=== PATIENT | female | born 1995 | race American Indian/Alaskan Native ===

== ENCOUNTER 2016-09-07 11:40 | Emergency (ER) | payer MEDICAID, OTHER ==
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
[2016-09-07 14:23] LABS: Bilirubin,Urine NEG (Negative); Blood,Urine NEG (Negative); Ketones,Urine NEG (Negative); Leukocyte Esterase,Urine NEG (Negative); Mucus,Urine 1+ /HPF; Nitrite,Urine NEG (Negative); Protein,Urine <15 mg/dL mg/dL (Negative); Urobilinogen,Urine < 2.0 mg/dL (<2.0)
--- NOTE | 2016-09-07 16:01 | XRay Report ---
AP AND LATERAL LUMBOSACRAL SPINE: History: Back pain. The vertebral bodies are well mineralized and normal in alignment and vertebral height with well preserved interspace distances. The visualized portions of the posterior elements are normal. IMPRESSION: Normal study.
[2016-09-07 16:40] VITALS: BP 122/80
== END 2016-09-07 16:38 | disposition home or self-care (01) ==
LOC: ED 11:40
DX: M54.16 Radiculopathy, lumbar region (principal)
CPT/HCPCS: 72100; 81001; 81025; 99283

== ENCOUNTER 2018-10-07 20:16 | Emergency (ER) | payer OTHER ==
--- NOTE | 2018-10-07 22:45 | Emergency Department Report ---
ED Female HPI - General Chief complaint: Urogenital-Female Stated complaint: BLOOD PREG TEST Time Seen by Provider: 10/07/18 22:20 Source: patient Mode of arrival: Ambulatory Limitations: No Limitations - History of Present Illness Initial comments: Patient is a nulliparous 23-year-old of female with no past medical history who presents to the ED with complaint of persistent bilateral nipple pain, intermittent nausea and vomiting for the last 1 week. Patient says that she has had 7 pregnancies tests at home these have all been negative. Patient states that her symptoms are persistent and wanted a blood test to rule out a positive . Patient denies abdominal pain, dizziness, fever, chills, dysuria, urinary frequency and urgency, vaginal discharge, vaginal bleeding, diarrhea, headache or change in vision or palpitations. Patient states that she used to be on control medications for 4 years but stopped taking these medications 5 months ago. Patient states that her last major cycle was 2 months ago. MD Complaint: other (Bilateral nipple pain, intermittent nausea) -: Gradual, week(s) (4) Location: other (Generalized) Radiation: non-radiating Severity: mild Severity scale (0 -10): 1 Quality: dull Consistency: intermittent Improves with: none Worsens with: none Are you Now?: No Last Menstrual Period: 08/07/18 EDC: 05/14/19 Associated Symptoms: nausea/vomiting, loss of appetite. denies: vaginal discharge, vaginal bleeding, abdominal pain, fever/chills, dysuria, hematuria, rash, shortness of breath, syncope, weakness - Related Data Sexually active: Yes : 0 Para: 0 A: 0 Previous Rx's Medication Instructions Recorded Last Taken Type DOXYCYCLINE Hyclate [Vibramycin 100 mg PO BID #14 capsule 06/22/13 Unknown Rx CAP] Ibuprofen [Motrin] 800 mg PO Q8HR PRN #15 tablet 09/07/16 Unknown Rx Metaxalone [Skelaxin] 800 mg PO TID #15 tablet 09/07/16 Unknown Rx Allergies Allergy/AdvReac Type Severity Reaction Status Date / Time Penicillins Allergy Rash Verified 06/22/13 17:01 ED Review of Systems ROS: Stated complaint: BLOOD PREG TEST Other details as noted in HPI Comment: All other systems reviewed and negative Constitutional: no symptoms reported. denies: see HPI, chills, diaphoresis, fever, malaise, weakness Eyes: as per HPI. denies: eye pain, eye discharge, vision change ENT: as per HPI. denies: ear pain, dental pain, hearing loss Respiratory: no symptoms reported, see HPI. denies: cough, orthopnea, shortness of breath, SOB with exertion Cardiovascular: as per HPI. denies: chest pain, palpitations, dyspnea on exertion, paroxysmal nocturnal dyspnea Endocrine: no symptoms reported, see HPI. denies: excessive sweating, intolerance to cold, intolerance to heat, increased thirst, increased urine, unexplained weight gain Gastrointestinal: as per HPI, nausea, vomiting. denies: abdominal pain, diarrhea, constipation, hematemesis, hematochezia Genitourinary: as per HPI. denies: urgency, dysuria, frequency, hematuria, discharge, abnormal menses, dyspareunia Musculoskeletal: as per HPI. denies: back pain, joint swelling, arthralgia Skin: as per HPI. denies: rash, lesions, change in hair/nails, pruritus Neurological: as per HPI. denies: headache, weakness, paresthesias, confusion Psychiatric: as per HPI Hematological/Lymphatic: as per HPI ED Past Medical Hx - Past Medical History Previous Medical History?: No - Surgical History Past Surgical History?: No - Social History Smoking Status: Never Smoker Substance Use Type: None - Medications Home Medications: Home Medications Medication Instructions Recorded Confirmed Last Taken Type DOXYCYCLINE Hyclate [Vibramycin 100 mg PO BID #14 capsule 06/22/13 Unknown Rx CAP] Ibuprofen [Motrin] 800 mg PO Q8HR PRN #15 tablet 09/07/16 Unknown Rx Metaxalone [Skelaxin] 800 mg PO TID #15 tablet 09/07/16 Unknown Rx ED Physical Exam - General Limitations: No Limitations General appearance: alert, in no apparent distress - Head Head exam: Present: atraumatic, normocephalic, normal inspection - Eye Eye exam: Present: normal appearance, PERRL, EOMI. Absent: scleral icterus, conjunctival injection, nystagmus Pupils: Present: normal accommodation - ENT ENT exam: Present: normal exam, normal orophraynx, mucous membranes moist, TM's normal bilaterally, normal external ear exam - Neck Neck exam: Present: normal inspection. Absent: tenderness, meningismus, full ROM, lymphadenopathy - Respiratory Respiratory exam: Present: normal lung sounds bilaterally. Absent: rales, rhonchi, chest wall tenderness, decreased breath sounds, prolonged expiratory - Cardiovascular Cardiovascular Exam: Present: regular rate, normal rhythm, normal heart sounds - GI/Abdominal GI/Abdominal exam: Present: soft, normal bowel sounds. Absent: tenderness, guarding, rebound, hyperactive bowel sounds, hypoactive bowel sounds - Rectal Rectal exam: Present: deferred - Extremities Exam Extremities exam: Present: normal inspection, full ROM, normal capillary refill - Back Exam Back exam: Present: normal inspection, full ROM. Absent: muscle spasm, paraspinal tenderness, vertebral tenderness - Neurological Exam Neurological exam: Present: alert, oriented X3, CN II-XII intact - Psychiatric Psychiatric exam: Present: normal affect - Skin Skin exam: Present: warm, dry, intact, normal color ED Course Vital Signs 10/07/18 20:36 Temperature 98.6 F Pulse Rate 71 Respiratory 18 Rate Blood Pressure 138/76 O2 Sat by Pulse 99 Oximetry ED Medical Decision Making - Medical Decision Making Lab tests results are unremarkable, with the hCG Quant less than 2.0. Patient discharged home and advised follow-up with [facility] physician in 7-10 days for reevaluation. - Differential Diagnosis , Fibrocystic breast disease Critical care attestation.: If time is entered above; I have spent that time in minutes in the direct care of this critically ill patient, excluding procedure time. ED Disposition Clinical Impression: Nausea and vomiting in adult -related symptom Qualifiers: Trimester: unspecified trimester Qualified Code(s): O26.90 - related conditions, unspecified, unspecified trimester Disposition: - TO HOME OR SELFCARE Is pt being admited?: No Does the pt Need Aspirin: No Condition: Stable Instructions: Breast Fullness Versus Breast Engorgement (ED), Acute Nausea and Vomiting (ED) Additional Instructions: FOLLOW UP WITH THE [facility] IN 7-10 DAYS FOR REEVALUATION Referrals: KAVIN FLORES MD [Primary Care Provider] - 3-5 Days Time of Disposition: 22:44 Print Language: STATELESS
[2018-10-07 23:55] VITALS: BP 128/67
== END 2018-10-07 23:55 | disposition home or self-care (01) ==
LOC: ED 20:16
DX: O21.8 Other vomiting complicating pregnancy (principal); O26.90 Pregnancy related conditions, unspecified, unspecified trimester; Z3A.00 Weeks of gestation of pregnancy not specified
CPT/HCPCS: 36415; 84702; 99283

== ENCOUNTER 2020-06-09 07:59 | Emergency (ER) | payer BC, OTHER ==
[2020-06-09 09:47] VITALS: BP 131/86
[2020-06-09 10:25] LABS: Bilirubin,Urine NEG (Negative); Blood,Urine LG (Negative); Color,Urine Yellow (Yellow); Mucus,Urine 3+ /HPF; Urobilinogen,Urine < 2.0 mg/dL (<2.0)
[2020-06-09 10:26] LABS: RBC,Urine > 182.0 /HPF (0.0-6.0); WBC,Urine > 182.0 /HPF (0.0-6.0)
[2020-06-09 10:27] LABS: HCG Qualitative,Urine Negative (Negative)
--- NOTE | 2020-06-09 10:54 | Emergency Department Report ---
ED General Adult HPI - General Chief complaint: Urogenital-Female Stated complaint: POSS UTI/BACK PAIN Time Seen by Provider: 06/09/20 10:26 Source: patient Mode of arrival: Ambulatory Limitations: No Limitations - History of Present Illness Initial comments: Patient is 24 years old female with no significant past medical history. Patient presented to the ER complaining of suprapubic pain associated with urinary frequency and dysuria. Patient stated the symptoms has been going on for few days. Patient denied any fever or chills. No nausea or vomiting. Patient also stated that she has been waxing and started to have positive lesions around her hair follicles for the last few days. - Related Data Previous Rx's Medication Instructions Recorded Last Taken Type DOXYCYCLINE Hyclate [Vibramycin 100 mg PO BID #14 capsule 06/22/13 Unknown Rx CAP] Ibuprofen [Motrin] 800 mg PO Q8HR PRN #15 tablet 09/07/16 Unknown Rx Metaxalone [Skelaxin] 800 mg PO TID #15 tablet 09/07/16 Unknown Rx Allergies Allergy/AdvReac Type Severity Reaction Status Date / Time Penicillins Allergy Rash Verified 06/09/20 08:21 ED Review of Systems ROS: Stated complaint: POSS UTI/BACK PAIN Other details as noted in HPI Comment: All other systems reviewed and negative Constitutional: no symptoms reported Respiratory: no symptoms reported Cardiovascular: denies: chest pain, palpitations Gastrointestinal: denies: abdominal pain, nausea, diarrhea Genitourinary: urgency, dysuria, frequency Skin: lesions ED Past Medical Hx - Past Medical History Previous Medical History?: No - Surgical History Past Surgical History?: No - Social History Smoking Status: Never Smoker Substance Use Type: None - Medications Home Medications: Home Medications Medication Instructions Recorded Confirmed Last Taken Type DOXYCYCLINE Hyclate [Vibramycin 100 mg PO BID #14 capsule 06/22/13 Unknown Rx CAP] Ibuprofen [Motrin] 800 mg PO Q8HR PRN #15 tablet 09/07/16 Unknown Rx Metaxalone [Skelaxin] 800 mg PO TID #15 tablet 09/07/16 Unknown Rx ED Physical Exam - General Limitations: No Limitations General appearance: alert, in no apparent distress - Head Head exam: Present: atraumatic, normocephalic, normal inspection - Eye Eye exam: Present: normal appearance - ENT ENT exam: Present: normal exam, normal orophraynx, mucous membranes moist - Neck Neck exam: Present: normal inspection - Respiratory Respiratory exam: Present: normal lung sounds bilaterally - Cardiovascular Cardiovascular Exam: Present: regular rate, normal rhythm, normal heart sounds - GI/Abdominal GI/Abdominal exam: Present: soft, normal bowel sounds. Absent: distended, tenderness, guarding, rebound, rigid - Extremities Exam Extremities exam: Present: normal inspection, full ROM, normal capillary refill - Back Exam Back exam: Present: normal inspection, full ROM. Absent: tenderness, CVA tenderness (R), CVA tenderness (L) - Neurological Exam Neurological exam: Present: alert, oriented X3, CN II-XII intact ED Course Vital Signs 06/09/20 08:17 Temperature 32.1 F L Pulse Rate 87 Respiratory 16 Rate Blood Pressure 131/86 O2 Sat by Pulse 95 Oximetry Critical care attestation.: If time is entered above; I have spent that time in minutes in the direct care of this critically ill patient, excluding procedure time. ED Disposition Clinical Impression: UTI (urinary tract infection), Folliculitis Disposition: - TO HOME OR SELFCARE Is pt being admited?: No Condition: Stable Instructions: Urinary Tract Infection, Adult, Folliculitis Referrals: PRIMARY CARE, [Primary Care Provider] - 3-5 Days
== END 2020-06-09 11:41 | disposition home or self-care (01) ==
LOC: ED 07:59
DX: N39.0 Urinary tract infection, site not specified (principal); L73.9 Follicular disorder, unspecified; Z79.899 Other long term (current) drug therapy; Z88.0 Allergy status to penicillin
CPT/HCPCS: 81001; 81025; 99283

== ENCOUNTER 2020-12-16 09:40 | Emergency (ER) | payer BC ==
[2020-12-16 11:23] LABS: Bilirubin,Urine NEG (Negative); Blood,Urine NEG (Negative); Color,Urine Yellow (Yellow); Mucus,Urine FEW /HPF; Protein,Urine <15 mg/dL mg/dL (Negative); Urobilinogen,Urine < 2.0 mg/dL (<2.0)
[2020-12-16] MEDS ORDERED: MECLIZINE 25 MG TAB PO ONE (12:35)
[2020-12-16 13:15] LABS: Basophils % (Auto) 0.6 % (0.0-1.8); Eosinophils # (Auto) 0.2 K/mm3 (0.0-0.4); Eosinophils % (Auto) 2.4 % (0.0-4.3); Hematocrit 43.2 % (30.3-42.9); Hemoglobin 14.1 gm/dl (10.1-14.3); Lymphocytes # (Auto) 2.2 K/mm3 (1.2-5.4); Lymphocytes % (Auto) 28.5 % (13.4-35.0); Mean Corpuscular HGB Conc 33 % (30-34); Mean Corpuscular Volume 79 fl (79-97); Monocytes # (Auto) 0.4 K/mm3 (0.0-0.8); Monocytes % (Auto) 5.5 % (0.0-7.3); Platelet Count 330 K/mm3 (140-440); Red Blood Count 5.45 M/mm3 (3.65-5.03); Red Cell Distribution Width 13.7 % (13.2-15.2)
[2020-12-16 13:24] LABS: Alanine Aminotransferase 27 units/L (7-56); Albumin 4.3 g/dL (3.9-5); BUN/Creatinine Ratio 15; Blood Urea Nitrogen 9 mg/dL (7-17); Calcium 8.7 mg/dL (8.4-10.2); Hemolysis Index 10
--- NOTE | 2020-12-16 14:15 | Emergency Department Report ---
ED Dizziness HPI - General Chief Complaint: Dizziness Stated Complaint: DIZZINESS, LOSS OF BALANCE Time Seen by Provider: 12/16/20 12:19 Source: patient Mode of arrival: Ambulatory Limitations: No Limitations - History of Present Illness Initial Comments: Patient is a 25-year-old female presents emergency room complaints of dizziness that began this morning. She states it is worse with standing up or certain head movements. She states it feels like she is on a ship. She denies any nausea, vomiting, diarrhea, fever, headache, vision changes, numbness, weakness, speech disturbance. No past medical history. Allergy to penicillin. - Related Data Previous Rx's Medication Instructions Recorded Last Taken Type DOXYCYCLINE Hyclate [Vibramycin 100 mg PO BID #14 capsule 06/22/13 Unknown Rx CAP] Ibuprofen [Motrin] 800 mg PO Q8HR PRN #15 tablet 09/07/16 Unknown Rx Metaxalone [Skelaxin] 800 mg PO TID #15 tablet 09/07/16 Unknown Rx Sulfamethoxazole/Trimethoprim 1 each PO BID #14 tablet 06/09/20 Unknown Rx [Bactrim DS TAB] Meclizine [Antivert] 25 mg PO TID PRN #30 tablet 12/16/20 Unknown Rx Allergies Allergy/AdvReac Type Severity Reaction Status Date / Time Penicillins Allergy Rash Verified 06/09/20 08:21 ED Review of Systems ROS: Stated complaint: DIZZINESS, LOSS OF BALANCE Other details as noted in HPI Comment: All other systems reviewed and negative ED Past Medical Hx - Past Medical History Previous Medical History?: No - Surgical History Past Surgical History?: Yes Additional Surgical History: Carpal tunnel release surgery 10/30/20 - Social History Smoking Status: Never Smoker Substance Use Type: None - Medications Home Medications: Home Medications Medication Instructions Recorded Confirmed Last Taken Type DOXYCYCLINE Hyclate [Vibramycin 100 mg PO BID #14 capsule 06/22/13 Unknown Rx CAP] Ibuprofen [Motrin] 800 mg PO Q8HR PRN #15 tablet 09/07/16 Unknown Rx Metaxalone [Skelaxin] 800 mg PO TID #15 tablet 09/07/16 Unknown Rx Sulfamethoxazole/Trimethoprim 1 each PO BID #14 tablet 06/09/20 Unknown Rx [Bactrim DS TAB] Meclizine [Antivert] 25 mg PO TID PRN #30 tablet 12/16/20 Unknown Rx ED Physical Exam - General Limitations: No Limitations General appearance: alert, in no apparent distress - Head Head exam: Present: atraumatic, normocephalic - Eye Eye exam: Present: normal appearance, PERRL, EOMI. Absent: conjunctival injection, nystagmus, periorbital swelling, periorbital tenderness Pupils: Present: normal accommodation - ENT ENT exam: Present: normal orophraynx, mucous membranes moist, TM's normal bilaterally, normal external ear exam - Respiratory Respiratory exam: Present: normal lung sounds bilaterally. Absent: respiratory distress, wheezes, rales, rhonchi, stridor, chest wall tenderness, accessory muscle use, decreased breath sounds, prolonged expiratory - Cardiovascular Cardiovascular Exam: Present: regular rate, normal rhythm, normal heart sounds. Absent: systolic murmur, diastolic murmur, rubs, gallop - Neurological Exam Neurological exam: Present: alert, oriented X3, CN II-XII intact, normal gait, other (normal finger to nose, normal heel to hubbard, 5/5 muscle strength in the BUE/BLE, sensation intact, no focal neuro deficit). Absent: motor sensory deficit - Psychiatric Psychiatric exam: Present: normal affect, normal mood - Skin Skin exam: Present: warm, dry, intact ED Course Vital Signs 12/16/20 12/16/20 09:54 15:14 Temperature 98.4 F Pulse Rate 65 64 Respiratory 16 15 Rate Blood Pressure 137/72 Blood Pressure 121/84 [Right] O2 Sat by Pulse 100 100 Oximetry ED Medical Decision Making - Lab Data Result diagrams: 12/16/20 12:38 12/16/20 12:38 Lab Results 12/16/20 12/16/20 12/16/20 Range/Units 12:38 12:38 12:38 WBC 7.6 (4.5-11.0) K/mm3 RBC 5.45 H (3.65-5.03) M/mm3 Hgb 14.1 (10.1-14.3) gm/dl Hct 43.2 H (30.3-42.9) % MCV 79 (79-97) fl MCH 26 L (28-32) pg MCHC 33 (30-34) % RDW 13.7 (13.2-15.2) % Plt Count 330 (140-440) K/mm3 Lymph % (Auto) 28.5 (13.4-35.0) % [place] % (Auto) 5.5 (0.0-7.3) % Eos % (Auto) 2.4 (0.0-4.3) % Baso % (Auto) 0.6 (0.0-1.8) % Lymph # (Auto) 2.2 (1.2-5.4) K/mm3 [place] # (Auto) 0.4 (0.0-0.8) K/mm3 Eos # (Auto) 0.2 (0.0-0.4) K/mm3 Baso # (Auto) 0.0 (0.0-0.1) K/mm3 Seg Neutrophils % 63.0 (40.0-70.0) % Seg Neutrophils # 4.8 (1.8-7.7) K/mm3 Sodium 138 (137-145) mmol/L Potassium 4.0 (3.6-5.0) mmol/L Chloride 101.5 (98-107) mmol/L Carbon Dioxide 25 (22-30) mmol/L Anion Gap 16 mmol/L BUN 9 (7-17) mg/dL Creatinine 0.6 (0.6-1.2) mg/dL Estimated GFR > 60 ml/min BUN/Creatinine Ratio 15 % Glucose 88 (65-100) mg/dL Calcium 8.7 (8.4-10.2) mg/dL Magnesium 1.80 (1.7-2.3) mg/dL Total Bilirubin 0.60 (0.1-1.2) mg/dL AST 26 (5-40) units/L ALT 27 (7-56) units/L Alkaline Phosphatase 72 (35-129) units/L Total Creatine Kinase 81 (30-135) units/L Total Protein 7.8 (6.3-8.2) g/dL Albumin 4.3 (3.9-5) g/dL Albumin/Globulin Ratio 1.2 % HCG, Qual Negative (Negative) Urine Color (Yellow) Urine Turbidity (Clear) Urine pH (5.0-7.0) Ur Specific [place] (1.003-1.030) Urine Protein (Negative) mg/dL Urine Glucose (UA) (Negative) mg/dL Urine Ketones (Negative) mg/dL Urine Blood (Negative) Urine Nitrite (Negative) Urine Bilirubin (Negative) Urine Urobilinogen (<2.0) mg/dL Ur Leukocyte Esterase (Negative) Urine WBC (Auto) Urine RBC (Auto) (0.0-6.0) /HPF U Epithel Cells (Auto) (0-13.0) /HPF Urine Mucus /HPF // Range/Units Unknown WBC (4.5-11.0) K/mm3 RBC (3.65-5.03) M/mm3 Hgb (10.1-14.3) gm/dl Hct (30.3-42.9) % MCV (79-97) fl MCH (28-32) pg MCHC (30-34) % RDW (13.2-15.2) % Plt Count (140-440) K/mm3 Lymph % (Auto) (13.4-35.0) % [place] % (Auto) (0.0-7.3) % Eos % (Auto) (0.0-4.3) % Baso % (Auto) (0.0-1.8) % Lymph # (Auto) (1.2-5.4) K/mm3 [place] # (Auto) (0.0-0.8) K/mm3 Eos # (Auto) (0.0-0.4) K/mm3 Baso # (Auto) (0.0-0.1) K/mm3 Seg Neutrophils % (40.0-70.0) % Seg Neutrophils # (1.8-7.7) K/mm3 Sodium (137-145) mmol/L Potassium (3.6-5.0) mmol/L Chloride (98-107) mmol/L Carbon Dioxide (22-30) mmol/L Anion Gap mmol/L BUN (7-17) mg/dL Creatinine (0.6-1.2) mg/dL Estimated GFR ml/min BUN/Creatinine Ratio % Glucose (65-100) mg/dL Calcium (8.4-10.2) mg/dL Magnesium (1.7-2.3) mg/dL Total Bilirubin (0.1-1.2) mg/dL AST (5-40) units/L ALT (7-56) units/L Alkaline Phosphatase (35-129) units/L Total Creatine Kinase (30-135) units/L Total Protein (6.3-8.2) g/dL Albumin (3.9-5) g/dL Albumin/Globulin Ratio % HCG, Qual (Negative) Urine Color Yellow (Yellow) Urine Turbidity Clear (Clear) Urine pH 7.0 (5.0-7.0) Ur Specific [place] 1.012 (1.003-1.030) Urine Protein <15 mg/dl (Negative) mg/dL Urine Glucose (UA) Neg (Negative) mg/dL Urine Ketones Neg (Negative) mg/dL Urine Blood Neg (Negative) Urine Nitrite Neg (Negative) Urine Bilirubin Neg (Negative) Urine Urobilinogen < 2.0 (<2.0) mg/dL Ur Leukocyte Esterase Neg (Negative) Urine WBC (Auto) Not Reportable Urine RBC (Auto) 1.0 (0.0-6.0) /HPF U Epithel Cells (Auto) < 1.0 (0-13.0) /HPF Urine Mucus Few /HPF Vital Signs 12/16/20 12/16/20 09:54 15:14 Temperature 98.4 F Pulse Rate 65 64 Respiratory 16 15 Rate Blood Pressure 137/72 Blood Pressure 121/84 [Right] O2 Sat by Pulse 100 100 Oximetry - EKG Data EKG shows normal: sinus rhythm, axis, intervals, ST-T waves Rate: normal - EKG Data 12/16/20 20:47 low voltage no STEMI - Medical Decision Making Patient is a 25-year-old female presents emergency room complaints of dizziness that began this morning. She states it is worse with standing up or certain head movements. She states it feels like she is on a ship. She denies any nausea, vomiting, diarrhea, fever, headache, vision changes, numbness, weakness, speech disturbance. No past medical history. Allergy to penicillin. Vitals are stable. EKG with low voltage, otherwise normal. Labs are normal. Orthostatic vital signs are normal. UA is within normal limits. Patient has no neurological deficits on exam. Symptoms and examination appear most consistent with vertigo. Patient given medication while in the emergency department with improvement of symptoms. Patient given prescription for medication. Advised patient Please take medication as prescribed. Increase your water intake. Follow-up with your primary care doctor. Follow-up with ear nose and throat doctor. Return to emergency room for new or worsening symptoms. Critical care attestation.: If time is entered above; I have spent that time in minutes in the direct care of this critically ill patient, excluding procedure time. ED Disposition Clinical Impression: Dizziness Disposition: DC-01 TO HOME OR SELFCARE Is pt being admited?: No Does the pt Need Aspirin: No Condition: Stable Instructions: Vertigo, [id number] Additional Instructions: Please take medication as prescribed. Increase your water intake. Follow-up with your primary care doctor. Follow-up with ear nose and throat doctor. Return to emergency room for new or worsening symptoms. Prescriptions: Meclizine [Antivert] 25 mg PO TID PRN #30 tablet PRN Reason: Vertigo Referrals: YASMANI CASTELLANOS MD [Staff Physician] - 2-3 Days [facility] [Provider Group] - 2-3 Days REECE MCCORMICK MD [Staff Physician] - 2-3 Days Time of Disposition: 14:12 Print Language: PALESTINIAN
[2020-12-16 15:15] VITALS: BP 121/84
--- NOTE | 2020-12-17 10:41 | Electrocardiograph Report ---
[facility] Test Date: 2020-12-16 Test Time: 10:04:07 Pat Name: EVE AGUILERA Department: Room: Gender: F [employer] Project [employer]: POLLO : 1995 Requested By: ED DOC Order Number: [id number] Reading MD: Maico Swenson Measurements Intervals [place] Rate: 60 P: 34 UT: 147 QRS: 41 QRSD: 82 T: 12 QT: 408 QTc: 406 Interpretive Statements Sinus rhythm Low voltage, precordial leads No previous ECG available for comparison Electronically Signed On 12-17-2020 10:40:43 EDT by Maico Swenson
== END 2020-12-16 15:15 | disposition home or self-care (01) ==
LOC: ED 09:40
DX: R42 Dizziness and giddiness (principal); Z98.890 Other specified postprocedural states; Z79.1 Long term (current) use of non-steroidal anti-inflammatories (NSAID); Z79.899 Other long term (current) drug therapy; Z88.0 Allergy status to penicillin
CPT/HCPCS: 36415; 80053; 81001; 82550; 83735; 84703; 85025; 93005